=== PATIENT | male | born 1955 | race Caucasian/White ===

== ENCOUNTER 2024-02-13 23:51 | Inpatient (IN) | payer BC, SELFPAY ==
[2024-02-13] VITALS (7 sets, daily range): BP systolic 105–178; BP diastolic 69–116; BMI 25.9
[2024-02-13 21:03] LABS: % Basophils 0.4 % (0-2); % Eosinophils 5.3 % (0-6); % Immature Granulocytes 0.3 % (0-0.5); % Lymphocytes 24.9 % (20.5-51.1); % Monocytes 6.9 % (1.7-9.3); % Neutrophils 62.2 % (42.2-75.2); Absolute Eosinophils 0.4 10^3/uL (0-0.7); Absolute Lymphocytes 1.7 10^3/uL (1.2-3.4); Absolute Monocytes 0.5 10^3/uL (0.1-0.6); Absolute Neutrophils 4.3 10^3/uL (1.4-6.5); Hematocrit 44.3 % (39.0-52.0); Hemoglobin 16.1 g/dL (13.0-18.0); Mean Corp Hgb Conc. 36.3 g/dL (33.0-37.0); Mean Corpuscular Hgb 30.3 pg (27.0-31.0); Mean Corpuscular Volume 83.4 fL (80.0-94.0); Mean Platelet Volume 10.6 fL (7.4-10.4); Nucleated Red Blood Cells % 0 % (-); Platelet Count 188 10^3/uL (130-400); Red Blood Cell Count 5.31 10^6/uL (4.70-6.10); Red Cell Dist. Width 11.9 % (11.5-14.5); White Blood Cell Count 6.9 10^3/uL (4.8-10.8)
[2024-02-13] MEDS: NITROSTAT (SUBLINGUAL) 0.400000000000000022 MG SL ×2 (21:05→21:18)
[2024-02-13] MEDS: TYLENOL 1000 MG PO (21:05)
[2024-02-13] MEDS: LOW STRENGTH ASPIRIN 324 MG PO (21:05)
[2024-02-13 21:18] LABS: ALT (SGPT) 38 U/L (0-50); AST (SGOT) 30 U/L (17-59); Albumin 4.7 g/dl (3.5-5.0); Alkaline Phosphatase 62 U/L (38-126); Blood Urea Nitrogen 13 mg/dl (9-20); Calcium 9.6 mg/dl (8.4-10.2); Carbon Dioxide 27 mmol/L (22-30); Chloride 103 mmol/L (98-107); Estimated Creatinine Clearance 79 ml/min; Glucose 127 mg/dl (70-99); Potassium 3.9 mmol/L (3.5-5.1); Sodium 137 mmol/L (135-145); Total Bilirubin 1.2 mg/dl (0.2-1.3); Total Protein 7.2 g/dl (6.3-8.2); eGFR > 60.00
[2024-02-13 21:28] LABS: Troponin I 0.051 ng/ml
[2024-02-13] MEDS: NITRO-BID 1 INCH TOPICAL (21:37)
[2024-02-13 21:59] LABS: APTT 40.4 Sec (23.4-35.0)
[2024-02-13] MEDS: HEPARIN 4000 UNITS IV (22:04)
[2024-02-13] MEDS: HEPARIN 25000 UNITS/250 ML IV (22:06)
--- NOTE | 2024-02-13 22:11 | ED.GENMED ---
History of Present Illness
General
Chief Complaint: Chest Pain
Source: patient
Exam Limitations: none
Time Seen by Provider: 02/13/24 20:35
Travel History
Have you had any contact with someone who has COVID-19?: No
Do you have any symptoms of coronavirus? Fever > 100 degrees, chills, cough, shortness of breath, sore throat, loss of taste or smell, muscle aches, or headache?: No
History of Present Illness
History of Present Illness:
60-year-old male who presents after he developed chest pressure. The patient states that started yesterday and he has some chest pressure that resolved. States he was able to go to bed and felt okay. Thought maybe it was GI. Today he woke up did
not feel quite himself a little bit fatigued and then noticed he was short of breath with exertion. He went to a [employer] game and walked again was not feeling well. On the way home his chest pressure got worse and he was concerned. On my
evaluation the chest pressure is a little bit better but does persist. Denies feeling short of breath at rest. No fevers. No palpitations. His blood pressure is noted to be high but he states he has no history of hypertension
Past History
Past History
ED Past Medical History: None
ED Past Surgical History: None
Social History
Tobacco: Non-smoker
Alcohol: None
Drug: None
Living: with family
Phy Exam
Physical Exam
Physical Exam:
CONSTITUTIONAL Patient alert and oriented to person, place and time. Well-appearing. Vital signs reviewed. Hypertensive
HEAD atraumatic, normocephalic.
EYES eyelids normal to inspection, Pupils equally round and reactive to light, Extraocular muscles intact, Conjunctiva normal, Sclera normal.
NECK normal range of motion, Trachea midline, no jugular venous distention.
RESPIRATORY CHEST No respiratory distress noted, Chest expansion equal, Bilateral breath sounds clear.
CARDIOVASCULAR regular rate and rhythm, Heart sounds normal.
ABDOMEN abdomen nontender, Bowel sounds normal. No distention.
BACK normal inspection, no obvious deformities
UPPER EXTREMITY range of motion normal, Motor strength normal, no cyanosis, no edema.
LOWER EXTREMITY range of motion normal, Motor strength normal, no cyanosis, no edema.
NEURO Speech normal, No focal motor deficits, [place] coma scale 15, Memory normal, Cranial Nerves intact to screening exam.
SKIN skin warm, dry, and normal in color.
PSYCHIATRIC patient oriented to person place and time, Normal affect.
Scores
Heart Score for Chest Pain Patients
STEMI patient?: No
History: Highly Suspicious
ECG: Nonspecific Repolarization
Age: >/= 65 years
Risk Factors: 1 or 2 Risk Factors
Troponin: >1 - <3 x Normal Limit
Heart Score for Chest Pain Patients: 7
Heart Score Risk: 72.7 % MACE over next 6 weeks
Course
Orders/Labs/Results
Orders:
Orders
02/13/24 20:20
Electrocardiogram (*1) Urgent
Reason for Study: Chest Pain
EKG- Treatment ONCE
02/13/24 20:27
Electrocardiogram (*1) Urgent
Reason for Study: Chest Pain
EKG- Treatment ONCE
02/13/24 20:54
CMP [Comprehensive Metabolic Panel] Urgent
Complete Blood Count/With Diff Urgent
Troponin I Urgent
02/13/24 20:58
Acetaminophen [Tylenol] 1,000 mg PO NOW STA
Aspirin Chewable [Low Strength Aspirin] 324 mg PO NOW STA
Nitroglycerin Sublingual [Nitrostat (Sublingual)] 0.4 mg SL [id number] PRN
CR Chest Portable - 1 View Urgent
Comment:
Reason For Exam: cp, htn
Reason Study Needs to be Portable: Patient Unstable
02/13/24 21:24
EKG [Electrocardiogram (*1)] Urgent
Reason for Study: Chest Pain
EKG- Treatment ONCE
02/13/24 21:28
Heparin 4,000 units IV NOW STA
Nursing to Place Non Medication Order As Directed
Physician Order: PTT 6 hours after initial start of Heparin infusion
Above order entered?: Yes
02/13/24 21:30
Heparin 13368 Units/250 ml 25,000 units in 250 ml IV PER PROTOCOL
Weight to be used for heparin protocol in kilograms (kg):: 79.379
Protocol:: Cardiac Tx/Acute Coronary
PTT Goal Range to be used:: PTT 73 to 111 seconds
Order type:: Initial
INITIAL Infusion Dose (UNITS/KG/hr) & then follow protocol:: 12 units/kg/hr
Infusion Dose in UNITS/hr & then follow protocol (UNITS/hr):: 950
INFUSION RATE in mL/hr & then follow protocol (mL/hr):: 9.5
PTT less than or equal to 64 seconds:: Increase rate by 200 units/hr (+ 2 mL/hr)
PTT 64.1 to 72.9 seconds:: Increase rate by 100 units/hr (+ 1 mL/hr)
PTT 73 to 111 seconds:: Target Range. No change in rate.
PTT 111.1 to 130.9 seconds:: Decrease rate by 100 units/hr (- 1 mL/hr)
PTT 131 to 199.9 seconds:: HOLD for 1 hr. Then decrease rate by 200 units/hr (- 2 mL/hr)
PTT greater than or equal to 200 seconds:: HOLD for 2 hrs & Notify Provider. Then decrease by 200 units/hr (-
2 mL/hr)
Lab follow-up:: Each change, PTT q6h until 2 consecutive are therapeutic. Then PTT
daily.
02/13/24 21:34
Nitroglycerin Ointment [Nitro-Bid] 1 inch .ROUTE .STK-MED ONE
02/13/24 21:36
Nitroglycerin Ointment [Nitro-Bid] 1 inch TOPICAL NOW STA
02/13/24 21:40
PTT Urgent
Comment: Obtain baseline before beginning heparin infusion if not already collected
02/13/24 23:34
Admit/Transfer Patient As Directed
Co-Sign Provider:
Level of Care: Inpatient admission
Assign to:: Telemetry
Physician / Group: Raisa/Hospitalist
Diagnosis: UA/NSTEMI, HTN urgency
Reason for Telemetry: Chest Pain syndromes
Date to Stop Telemetry: 02/15/24
Time to Stop Telemetry: 11:00
Reason for Hospitalization: UA/NSTEMI, HTN urgency
Expected length of stay greater than two midnights?: Yes
ELOS- Estimated Length of Stay in days: 3
I certify the patient meets the requirements for IP care: Yes
02/13/24 23:35
Code Status As Directed
Resuscitation Status: Full Code
02/14/24 04:10
PTT Urgent
02/15/24 11:00
DC Protocol for Telemetry ONCE
Abnormal Lab Results
02/13/24 02/13/24
20:54 21:40
MPV 10.6 H fL
(7.4-10.4)
APTT 40.4 H Sec
(23.4-35.0)
Glucose 127 H mg/dl
(70-99)
Troponin I 0.051 H* ng/ml
02/13/24 20:54
02/13/24 20:54
Vital Signs
Initial and Last Documented VS:
Initial Vital Signs
Temp Pulse Resp BP Pulse Ox
98.2 F 80 22 178/110 98
02/13/24 20:24 02/13/24 20:24 02/13/24 20:24 02/13/24 20:24 02/13/24 20:24
Last Documented Vital Signs
Temp Pulse Resp BP Pulse Ox
98.2 F 65 12 105/69 96
02/13/24 20:24 02/13/24 23:45 02/13/24 23:45 02/13/24 23:00 02/13/24 23:45
MDM/Problems Addressed
Differential Diagnosis Includes:
Acute NM, unstable angina aortic dissection, pulmonary embolism, GI etiology
MDM/Problems Addressed:
Unstable angina, left bundle branch
*Radiology
Radiology exam reviewed: all reviewed NAD by ED Provider
*Pulse Oximetry
Patient hypoxic: no
*EKG
Interpreted by ED Provider?: Yes
Interpretation: abnormal
Rate: normal
Rhythm: sinus
QRS Pattern: left bundle branch block
Ischemia: non-specific ST changes
*Inner Tube Inserter Interpretation
Rate: normal
Interpretation: normal
Rhythm: sinus
*Critical Care Note
Total Time (30-74mins, 75-104mins- exclusive of procedures): 30 minutes
Data Reviewed
Source: patient
Prescriptions/Medications Considered But Not Given:
Considered IV nitro but sublingual nitro resolved the symptoms.
Patient Management
Discussion with other providers: Hospitalist and Implement Mechanic (Case discussed with Dr. Campbell)
Escalation/DeEscalation of care consider admission/obs:
68-year-old male who presents with chest pain that was resolved with sublingual nitroglycerin. Now on Nitropaste. Noted to be bumped. Suspect unstable angina. EKGs are unchanged and look to be a left bundle branch block pattern. He does not
have old EKGs for comparison. Aspirin given. Heparin. Admit.
Update Note
Update Note:
2350 remains pain-free
ED Attending Note
-
Portions of this chart may have been created with voice recognition software.� Occasional wrong word or��sound alike� substitutions may have occurred due to the inherent limitations of voice recognition software.
Discharge Plan
Departure
Patient Disposition: Admit
Date of Disposition: 02/13/24
Time of Disposition: 22:11
Admit to: IVU
Presentation/result/management discussed w/ accepting MD/DO: Hospitalist
Discharge Problem:
Unstable angina
Interventions
Interventions:
*Risk Screen - Suicide Last Done: 02/13/24 20:24
*General Assessment Last Done: 02/13/24 20:59
*Neglect/Abuse Screening Last Done: 02/13/24 20:24
ED- Fall Risk Assessment Last Done: 02/13/24 20:58
*ED COVID-19 Vaccine History Last Done: 02/13/24 20:58
ED- Cardiac Assessment Last Done: 02/13/24 21:00
--- NOTE | 2024-02-13 23:40 | HPS.HSE ---
Family Physician
-
Family Physician: Greg Rivas
Chief Complaint
-
CP
History of Present Illness
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
non-radiating chest discomfort that started this afternoon while watching his grandson's baseball game (walking around). He felt some chest discomfort Wednesday as well that he initially attributed to gas bubble in esophagus, which was relieved with
drinking Dr. Gamboa soda. He woke up today (Wednesday) not feeling himself, felt more lethargic, a/w chest pressure/discomfort and difficulty taking in a good deep breath without pain. He has not experienced these symptoms in the past. Chest symptoms
resolved in ED following NTG. EKG was abnormal -LBBB and ST elevation precordial leads not meeting criteria for STEMI- no EKG to compare. HTN in ED as well that improved with NTG.
Medical History
Past Medical History
Past Medical History: Reports Other (Holt's esophagus, left shoulder OA)
Past Surgical History: Reports None
Social History
Tobacco: Non-smoker
Alcohol: Occasional
Drug: None
Family History
Family History: Cancer (colon cancer) and Other (stroke)
Allergies / Home Medications
Allergies reflects when Allergies were last updated in [employer].
Home Medications with original date entered in [employer]
Allergy/Medication List:
Allergies
Allergy/AdvReac Type Severity Reaction Status Date / Time
No Known Allergies Allergy Verified 02/13/24 20:27
Home Medications
pantoprazole 20 mg tablet,delayed release 20 mg PO DAILY 02/13/24
Review of Systems
-
A 12 point ROS was completed and negative except as noted: Yes
Physical Exam
Vital Signs
Vital Signs
Temp Pulse Resp BP Pulse Ox
98.2 F 71 14 105/69 93
02/13/24 20:24 02/13/24 23:00 02/13/24 23:00 02/13/24 23:00 02/13/24 23:00
Physical Exam
General: Well Developed, Well Nourished, No Apparent Distress, Comfortable and Conversant
HEENT: NormoCephalic, Anicteric and Moist mucous membranes
Respiratory: Clear
Cardiac: S1/S2 and Regular Rhythm
GI: Soft, Non Tender and Non Distended
Musculoskeletal: No Clubbing, No Cyanosis and No Edema
Skin: Warm and Dry
Neuro: AO x 3, No Motor Deficits and Nonfocal/grossly intact
Psych: Calm
Laboratory Results
-
02/13/24 20:54
02/13/24 20:54
Laboratory Results
APTT 40.4 Sec (23.4-35.0) H 02/13/24 21:40
Total Bilirubin 1.2 mg/dl (0.2-1.3) 02/13/24 20:54
AST 30 U/L (17-59) 02/13/24 20:54
ALT 38 U/L (0-50) 02/13/24 20:54
Alkaline Phosphatase 62 U/L (38-126) 02/13/24 20:54
Troponin I 0.051 ng/ml H* 02/13/24 20:54
Data Reviewed
-
Diagnostic Radiology: Image Personally Visualized and interpreted (NAD - report pending)
Medical Tests (Nuc Med, Echo, EKG etc): Image Personally Visualized and interpreted (LBBB, ST changes precordial leads) and Report Reviewed by me
Impression/Plan
-
IMPRESSION:
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
non-radiating chest discomfort that started this afternoon while watching his grandson's baseball game (walking around). He felt some chest discomfort Wednesday as well that he initially attributed to gas bubble in esophagus, which was relieved with
drinking Dr. Gamboa soda. He woke up today (Wednesday) not feeling himself, felt more lethargic, a/w chest pressure/discomfort and difficulty taking in a good deep breath without pain. He has not experienced these symptoms in the past. Chest symptoms
resolved in ED following NTG. EKG was abnormal -LBBB and ST elevation precordial leads not meeting criteria for STEMI- no EKG to compare. HTN in ED as well that improved with NTG.
#Chest pain concerning for unstable angina and NSTEMI,
-EKG ST elevation not meeting criteria for STEMI/ LBBB without comparison EKG
-trop 0.051
-admit to tele, continue hep gtt, serial trop, Cards Consult appreciated -Dr. Campbell made aware in ED
-NPO for possible cath Wednesday, gentle IVF overnight while NPO
-echo
-cardiovascular labs in am
-start metoprolol low dose and monitor BP
-daily aspirin 81 mg
-prn NTG
-pulse oximetry
#HTN urgency improved following NTG
#Holt's esophagus
-cont PPI
DVT proph-on Hep gtt, protocol
Full Code
[2024-02-14] VITALS (14 sets, daily range): BP systolic 108–151; BP diastolic 61–103; BMI 26.5
[2024-02-14] MEDS: NSS 1000 IV ×2 (01:17→14:25)
[2024-02-14 01:44] LABS: Troponin I 0.204 ng/ml
--- NOTE | 2024-02-14 01:56 | PTCARENOTE ---
Patient arrived to unit via stretcher around 00:45 with dx of UA/NSTEMI/ HTN urgency. Patient AAOX3. Denies pain or SOB. Assessment benign. Heparin gtt infusing at 9.5 ml/ hr with next PTT @ 4 am. Trops every 3 hours x 3 with EKGs. NPO for possible
cardiac cath in am. Oriented to unit. Call harman within reach.
[2024-02-14 04:27] LABS: INR 1.15; PT 14.5 Sec (11.4-14.6)
[2024-02-14 04:29] LABS: APTT 131.5 Sec (23.4-35.0)
[2024-02-14 04:31] LABS: Blood Urea Nitrogen 13 mg/dl (9-20); Calcium 9.1 mg/dl (8.4-10.2); Carbon Dioxide 26 mmol/L (22-30); Chloride 106 mmol/L (98-107); Estimated Creatinine Clearance 88 ml/min; Glucose 110 mg/dl (70-99); HDL Cholesterol 48 mg/dl; LDL Cholesterol, Calculated 131 mg/dl; Potassium 3.9 mmol/L (3.5-5.1); Sodium 137 mmol/L (135-145); Total Cholesterol 197 mg/dl (50-199); Triglyceride 94 mg/dl (10-149); Very Low Density Lipoprotein 18 mg/dl (0-30); eGFR > 60.00
[2024-02-14 05:06] LABS: Troponin I 0.279 ng/ml
[2024-02-14] MEDS: LOPRESSOR 12.5 MG PO (08:19)
[2024-02-14] MEDS: PROTONIX 20 MG PO (08:19)
[2024-02-14] MEDS: LOW STRENGTH ASPIRIN 81 MG PO (08:19)
--- NOTE | 2024-02-14 08:44 | CON.CAR ---
Addendum entered and electronically signed by Vince Ahumada MD 02/14/24 11:31:
68-year-old man with chest discomfort, left bundle branch block, and troponin 0.279. Fairly classic symptoms of shortness of breath and chest discomfort over the last 2 days.
Allergies: None known
PMH: Holt's, osteoarthritis
PSH: None
SH: Non-smoker, occasional alcohol, no drugs
FH: Colon cancer
Home medications: Pantoprazole 20 mg daily
Current meds: IV heparin, pantoprazole, aspirin, metoprolol
ROS: Negative except as above
115/72, pulse 68, res rate 16
Head neck exam unremarkable, no distress, clear lungs, regular rate and rhythm, paradoxically split S2, abdomen benign extremities without clubbing cyanosis or edema distal pulses okay, neuro nonfocal
ECG: Sinus bradycardia, left bundle branch block anterior T wave inversions
Hemoglobin 16.1, BUN and creatinine 13 and 0.86, peak troponin 0.279, HDL 48, total cholesterol 197, LDL 131
Chest x-ray: NAD
Impression:
ACS
Left bundle branch block
Holt's esophagitis
Hypercholesterolemia
Plan:
Cardiac catheterization
GDMT
Original Note:
Consultation
Consultation Request
Date/Time Consultation Requested: 02/14/24 at 0051
Date/Time Consultation Performed: 02/14/24 at 0730
Requesting Provider: Dr. Issa
Performing Provider: Dr. SHARRON Ahumada
Reason for Consultation: Chest pain, WHEELER, elevated Troponin, HTN
Medical History
-
History of Present Illness:
Patient came to [facility] yesterday with chest pain and WHEELER and his Troponin was elevated so cardiology consulted. Patient says that he had an episode of chest pain on Wednesday described as discomfort that resolved with drinking a carbonated beverage and
belching which was not unusual for him. He went to bed Wednesday night and felt fine. He awoke Wednesday and felt tired. He had WHEELER which was new and described as SOB with walking more than 100 ft. He has never had a problem like that before. Patient
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 and going to his grandsons' soccer games, but at that games the WHEELER continued and he felt ill. He was driving home and had recurrence of chest pain described as a
recurrence of gas type pain from the day before and instead of driving home to [place] he drove to [facility]. Patient had a LBBB on ECG in the ER and initial Troponin was 0.051 and is now up to 0.279. Chest pain was relievd with Nitro SL x1 in the
ER. Patient says he was given an additional NTG SL and then Nitro-paste due to ongoing HTN. He says his chest pain has not recurred. He says that at age 40 he needed an eye surgery and ECG was read as abnormal with previous PR at that time which
prompted a cardiology evaluation at [facility] including stress test that were normal. Patient reports increased stress since his mother unexpectedly after a fall and hip fracture in August. He has been stressed dealing with her will and
arranging for care of his adult sister who has an intellectual disability.
PMH:
h/o Holt's esophagus
Past Medical History
Past Medical History: Other (in HPI)
Past Surgical History: Other (eye surgery at age 40)
Social History
Tobacco: Non-Smoker
Alcohol: Occasional (2-3 times a month)
Drug: None
Personal:
Living: Alone
Employment: Employed
Family History
Family History: Other (mother in August after a fall and hip fracture, father with ETOH use disorder, sister with intellectual disability, brother A&W)
Allergies / Home Medications
Allergy/AdvReac Type Severity Reaction Status Date / Time
No Known Allergies Allergy Verified 02/13/24 20:27
�Medication �Instructions �Recorded �Confirmed �Type
pantoprazole 20 mg tablet,delayed 20 mg PO DAILY 02/13/24 02/13/24 History
release
Review of Systems
-
History Source: Patient
All other systems: Negative unless noted
Physical Exam
Vital Signs
Temp Pulse Resp BP Pulse Ox
97.5 F 68 16 115/72 97
02/14/24 08:00 02/14/24 08:00 02/14/24 08:00 02/14/24 08:00 02/14/24 08:00
GEN: NAD. AAOx3
HEENT: EOMI, MMM
LUNGS: CTA B/L, no wheezes or rales
CV: Reg, S1/S2, no murmur
ABD: soft, BS+, NT, ND
EXT: No clubbing, cyanosis, lesions or edema B/L
NEURO: Gross non-focal
SKIN: Warm, dry and pink. No rash
Lab Results
02/13/24 20:54
02/14/24 04:09
Troponin I 0.279 ng/ml H* D 02/14/24 04:09
Impression / Plan
-
PCP: Dr. Greg Rivas
Cardiology: None
Impression:
Chest pain
Elevated Troponin
WHEELER
HTN urgency
h/o Holt's esophagus
Prediabetes with HgbA1c 5.8% on 02/14/24
Hyperlipidemia, LDL 131
Echo 02/14/24: Study pending
Plan:
-Patient came to [facility] yesterday with chest pain and WHEELER and his Troponin was elevated so cardiology consulted. Patient says that he had an episode of chest pain on Wednesday described as discomfort that resolved with drinking a carbonated beverage
and belching which was not unusual for him. He went to bed Wednesday night and felt fine. He awoke Wednesday and felt tired. He had WHEELER which was new and described as SOB with walking more than 100 ft. He has never had a problem like that before.
Patient tried to follow his usual Wednesday routine of driving his [place]ep along [address] and going to his grandsons' soccer games, but at that games the WHEELER continued and he felt ill. He was driving home and had recurrence of chest pain described as a
recurrence of gas type pain from the day before and instead of driving home to [place] he drove to [facility]. Patient had a LBBB on ECG in the ER and initial Troponin was 0.051 and is now up to 0.279. Chest pain was relievd with Nitro SL x1 in the
ER. Patient says he was given an additional NTG SL and then Nitro-paste due to ongoing HTN. He says his chest pain has not recurred. He says that at age 40 he needed an eye surgery and ECG was read as abnormal with previous PR at that time which
prompted a cardiology evaluation at [facility] including stress test that were normal. Patient reports increased stress since his mother unexpectedly after a fall and hip fracture in August. He has been stressed dealing with her will and
arranging for care of his adult sister who has an intellectual disability.
-Reviewed with patient that he had chest pain, WHEELER, LBBB of unknown chronicity, HTN and elevated Troponin on admission. Expressed concern for ACS. Patient reports that he walked an 18 hole golf course last week without problem. Explained that ACS is
just that, an acute change.
-ECG showed reviewed by me showed LBBB
-Made a plan to check an echo and pending results will discuss cardiac cath again.
-For now patient is pain free on Heparin gtt and with Nitro-paste
-Additional Troponin levels ordered
-CVE checked and LDL is 131. Pending results of echo and likely cath will recommend moderate to high intensity statin
-Hyperglycemia with HgbA1c of 5.8% noted.
-HTN is new this admission. BP has improved with addition of Nitro pastae 1 in applied 02/13/24 PM plus addition of Lopressor 12.5 mg BID.
[2024-02-14 09:30] LABS: Glycohemoglobin (HgbA1c) 5.8 % (4.0-5.6)
[2024-02-14 11:50] LABS: APTT 72.5 Sec (23.4-35.0)
[2024-02-14 12:04] LABS: Troponin I 0.204 ng/ml
[2024-02-14 13:15] LABS: ACT-LR - POC 306 Seconds (116-155)
[2024-02-14 13:43] LABS: ACT-LR - POC 308 Seconds (116-155)
--- NOTE | 2024-02-14 13:50 | W.PN.HOSP.TC ---
Today's Communication/Plan
-
see bold
Assessment / Plan
Assessment / Plan
Gen: NAD, AAOx3.
Eyes: EOMI, PERRLA, no scleral icterus.
Neck: supple.
CV: RRR, +S1/S2, no m/r/g.
Resp: CTAB, no rales, wheezes, or rhonchi.
Abd: +BS, soft, NT, ND
Skin: No rashes.
Neuro: CN 2-12 intact, non-focal.
Psych: Normal mood and affect.
Acute coronary syndrome/NSTEMI with left bundle branch block:
-Trop peaked 0.279
-was on heparin gtt
-cath today with 2 stents to mid-LAD
-cont ASA/statin/Brilinta/BB/ACEi
-discussed with cardiology
Essential HTN (with hypertensive urgency on admission):
-improved following NTG
-cont BB/ACEi
Holt's esophagus: cont PPI
FULL/Lovenox
Anticipated Discharge: Within 24 hours
Subjective/Interval History
-
Date of Service: February 14, 2024
Denies CP/SOB.
Objective Data
-
Labs:
Laboratory Results
02/14/24 02/14/24 02/14/24
04:09 11:24 17:45
PT 14.5
INR 1.15
APTT 131.5 H 72.5 H Pending
Sodium 137
Potassium 3.9
Chloride 106
Carbon Dioxide 26
BUN 13
Creatinine 0.8
Glucose 110 H
Calcium 9.1
Vital Signs:
Vital Signs
Temp Pulse Resp BP Pulse Ox
97.6 F 62 16 125/76 97
02/14/24 11:31 02/14/24 11:31 02/14/24 11:31 02/14/24 11:31 02/14/24 11:31
I&O
02/13/24 02/14/24 02/15/24
06:59 06:59 06:59
Intake Total 345.5 / 345.5
Balance 345.5 / 345.5
--- NOTE | 2024-02-14 13:51 | ITS.CL.CATH ---
Evp Chief Exploration Officer - Catheterization
Cardiac Catheterization
Procedure Report:
LEFT HEART CATH AND CORONARY INTERVENTION
Date of Procedure: February 14, 2024
Referring: Dr. Vnice Ahumada
PROCEDURES:
1. Left heart catheterization with coronary and single-plane left ventriculography
2. Successful stenting of the proximal to mid LAD with a 3.5 x 23 mm Xience stent that was implanted at nominal pressures and postdilated distally with a 3.5 mm noncompliant balloon and in the proximal to midportion of the stent with a 4.0 x 12 mm
noncompliant balloon to 16 atmospheres in the proximal to midportion of the stent and 3.5 mm noncompliant balloon distally
INDICATION: This is a 68-year-old gentleman who presented to [facility] with new onset substernal chest tightness ruling in for small non-ST segment elevation myocardial infarction with peak troponin of 0.279 ng/mL. He is now referred for
coronary angiography.
ACCESS: Right radial artery, 6 Angolan sheath
HEMODYNAMICS (mmHg):
AO (s/d, m) : 119/71, 91
LV (s/d) : 121/6
LVEDP : 14
CORONARY FINDINGS
Dominance: Right
LEFT MAIN: Normal
LEFT ANTERIOR DESCENDING: The LAD arises normally from the left main and runs in the anterior interventricular groove. The proximal LAD is a large-caliber vessel that tapers beyond a small first diagonal branch with an 80-90% stenosis between the
small first diagonal and large second diagonal branch. The LAD beyond the second diagonal branch has a 60% stenosis. The remainder of the LAD has minor irregularities but no focal obstructive stenosis.
CIRCUMFLEX: The circumflex is a large-caliber nondominant vessel. OM1 arises from the mid circumflex and has a focal 60% stenosis. OM 2 is large and widely patent as is OM 3
RIGHT CORONARY: The right coronary artery is a large-caliber dominant vessel with diffuse mild luminal irregularities over its course. The distal RCA has serial 30-40% narrowings.
VENTRICULOGRAPHY: Left ventriculography was performed in an LOPEZ projection. The digital single-plane left ventricular ejection fraction is visually estimated at 40-45%. There is anterolateral and apical hypokinesis.
ANGIOPLASTY PROCEDURE DETAIL: Upon review of the diagnostic catheterization films the decision was made to proceed with percutaneous revascularization of the high-grade stenosis in the mid LAD between the first and second diagonal branches and
beyond the second diagonal branch with a second stent. Intravenous heparin was administered and the ACT was monitored throughout the procedure. A 180 mg loading dose of ticagrelor was given at the beginning of the interventional procedure and the
patient had received a loading dose of aspirin and 81 mg earlier today.
The origin of the left main was cannulated with a 6 Angolan EBU 3.75 guiding catheter and a short BMW guidewire was advanced to the apical LAD. Balloon predilation of the more proximal stenosis was performed with a 2.0 x 15 mm trek balloon. The mid
LAD beyond the second diagonal branch was stented with a 3.0 x 18 mm Xience stent in the more proximal stenosis was stented with a 3.5 x 23 mm Xience stent. The distal marker of the stent was positioned proximal to the second diagonal branch and
the proximal marker was positioned before the first diagonal branch. The more distal stent was postdilated with a 3.5 mm noncompliant balloon to 8 jodi distally and 10-12 jodi in the proximal to midportion of the stent. The more proximal stent was
postdilated with a 3.5 mm noncompliant balloon to high pressures at the distal edge and overlapping to the midportion of the stent. The proximal portion of the stent was postdilated with a 4.0 mm noncompliant balloon to high pressures at the
proximal edge and into the midportion of the stent. The final angiographic result was excellent
RADIATION SUMMARY: Fluoro Time (min): 12.6, Dose (mGy): 1481, DAP (Gy.cm2) : 60
CONCLUSIONS
1. Acute coronary syndrome with high-grade stenosis in the mid LAD that was successfully stented with a 3.5 x 23 mm Xience stent that was postdilated with a 3.5 mm noncompliant balloon distally and with a 4.0 mm noncompliant balloon in the proximal
to midportion of the stent
2. Successful stenting of the mid LAD beyond the large second diagonal branch with a 3.0 x 18 mm Xience stent that was postdilated with a 3.5 mm noncompliant balloon
3. Mild LV dysfunction
RECOMMENDATIONS
1. Uninterrupted dual antiplatelet therapy for 12 months followed by aspirin daily
2. High intensity lipid-lowering
3. Metoprolol XL and lisinopril for LV dysfunction and management of hypertension
Copy to: Dr. Vince Ahumada
[2024-02-14] MEDS: TYLENOL 650 MG PO (14:30)
--- NOTE | 2024-02-14 14:38 | PTCARENOTE ---
Received the patient form the laborer mine in his bed. The patient is aaox3, vss, 96% on RA. NSR with a BBB and a prolong Qt is noted on the monitor. His right R-band is in place with a positive right radial pulse noted. He complained of a JAY, a 5/10 on
scale. Tylenol given as ordered. I instructed him of his activity restrictions and expected oob time. His call harman is within reach.
--- NOTE | 2024-02-14 16:45 | CM ---
spoke to pt in room, he is prev indep, lives alone in a 2 story home with no steps to enter. he denies any dc planning needs. plan is for dc to home when medically stable.
--- NOTE | 2024-02-14 17:05 | CM ---
Addendum entered by Minnie Benitez 02/15/24 10:37:
brilinta is in stock at [facility]
Original Note:
Pricing on Brilinta through patients prescription plan is $150 a month. The patient qualifies for the $ 5 copay card. I will place coupon in the red discharge folder
[2024-02-14] MEDS: LIPITOR 80 MG PO (18:18)
[2024-02-14] MEDS: TOPROL XL 25 MG PO (20:23)
[2024-02-14] MEDS: LOVENOX 40 MG SC (20:23)
[2024-02-14] MEDS: BRILINTA 90 MG PO (20:23)
--- NOTE | 2024-02-14 23:48 | PTCARENOTE ---
Pt AOx3 and pleasant. Tele- SR. HR 60s. Assessment noted as documented. R radial dsg. c/d/i. Pt ambulatory around room w/ steady gait. Offers no c/o at this time. Currently in bed; call ghazal w/in reach.
[2024-02-15 03:20] VITALS: BP 126/77
[2024-02-15 03:57] VITALS: BMI 26.4
[2024-02-15 04:30] LABS: Hematocrit 44.3 % (39.0-52.0); Hemoglobin 15.5 g/dL (13.0-18.0); Mean Corpuscular Hgb 30.3 pg (27.0-31.0); Mean Corpuscular Volume 86.5 fL (80.0-94.0); Mean Platelet Volume 11.2 fL (7.4-10.4); Platelet Count 161 10^3/uL (130-400); Red Blood Cell Count 5.12 10^6/uL (4.70-6.10); Red Cell Dist. Width 11.9 % (11.5-14.5); White Blood Cell Count 8.3 10^3/uL (4.8-10.8)
[2024-02-15 04:53] LABS: Blood Urea Nitrogen 14 mg/dl (9-20); Calcium 9.4 mg/dl (8.4-10.2); Carbon Dioxide 22 mmol/L (22-30); Chloride 108 mmol/L (98-107); Estimated Creatinine Clearance 79 ml/min; Glucose 95 mg/dl (70-99); HDL Cholesterol 46 mg/dl; LDL Cholesterol, Calculated 121 mg/dl; Sodium 136 mmol/L (135-145); Total Cholesterol 192 mg/dl (50-199); Triglyceride 126 mg/dl (10-149); Very Low Density Lipoprotein 25 mg/dl (0-30); eGFR > 60.00
[2024-02-15 07:09] VITALS: BP 122/77
[2024-02-15] MEDS: TOPROL XL 25 MG PO (08:58)
[2024-02-15] MEDS: ZESTRIL 5 MG PO (08:58)
[2024-02-15] MEDS: LOW STRENGTH ASPIRIN 81 MG PO (08:58)
[2024-02-15] MEDS: PROTONIX 20 MG PO (08:58)
[2024-02-15] MEDS: BRILINTA 90 MG PO (08:59)
[2024-02-15] MEDS: FLUSH (NSS) 2 FLUSH IV (08:59)
--- NOTE | 2024-02-15 09:18 | W.PN.CARDCBS ---
Today's Communication / Plan
-
Stable for discharge to home
Cardiology f/u arranged
Impression / Plan
-
PCP: Dr. Greg Rivas
Cardiology: None
Impression:
NSTEMI, peak Troponin 0.279
CAD s/p 3.5 mm Xience to mid LAD and 3.0 mm Xience to mid LAD beyond large Diag-2 02/14/24
ICM EF 48% by echo 02/14/24
WHEELER
HTN urgency
h/o Holt's esophagus
Prediabetes with HgbA1c 5.8% on 02/14/24
Hyperlipidemia, LDL 131
Echo 02/14/24: EF 48% by Mast's method, Apical, anteroseptum, inferoseptum, and apical anterior wall hypokinesis, grade 1 diastolic dysfunction, mild MR
Plan:
-Patient with peak Troponin 0.279. Echo with EF down to 48%. Patient is symptomatically improved following LAD PCI x2 on 02/14/24.
-Talked with patient and daughter in room 02/15/24 and reviewed DAPT with aspirin and Brilinta. Appreciate help of CM on checking cost and availability of Brilinta.
-Patient was not taking an BP meds prior to admission and had HTN urgency on admission. Patient started on Toprol Xl 25 mg BID. Tele reviewed by me with intermittent sinus bradycardia. Will decrease to Toprol XL 12.5 mg daily.
-Patient is also new to lisinopril 2.5 mg daily and will need a BMP in 1 week. Cre stable at 0.9 and potassium 4.0 on day of discharge.
-Patient is interested in cardiac rehab.
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 Advised no lifting greater than 10 lbs for the next week and then no lifting greater than 50 lbs thereafter.
-LDL 131 and he was agreeable to start atorvastatin 80 mg HS. Recheck lipids and LFTs in 3 months.
-LBBB seems to be new this admission.
-Hyperglycemia with HgbA1c of 5.8% noted.
-Patient feels ready for discharge to home and would like to drive himself home at the 24 hour post-sedation shannon. Cardiology follow up being arranged
HPI: Patient came to [facility] yesterday with chest pain and WHEELER and his Troponin was elevated so cardiology consulted. Patient says that he had an episode of chest pain on Wednesday described as discomfort that resolved with drinking a carbonated
beverage and belching which was not unusual for him. He went to bed Wednesday night and felt fine. He awoke Wednesday and felt tired. He had WHEELER which was new and described as SOB with walking more than 100 ft. He has never had a problem like that
before. Patient tried to follow his usual Wednesday routine of driving his Jeep along [address] and going to his grandsons' soccer games, but at that games the WHEELER continued and he felt ill. He was driving home and had recurrence of chest pain
described as a recurrence of gas type pain from the day before and instead of driving home to [place] he drove to [facility]. Patient had a LBBB on ECG in the ER and initial Troponin was 0.051 and is now up to 0.279. Chest pain was relievd with Nitro
SL x1 in the ER. Patient says he was given an additional NTG SL and then Nitro-paste due to ongoing HTN. He says his chest pain has not recurred. He says that at age 40 he needed an eye surgery and ECG was read as abnormal with previous [facility] at that
time which prompted a cardiology evaluation at [facility] including stress test that were normal. Patient reports increased stress since his mother unexpectedly after a fall and hip fracture in August. He has been stressed dealing with her
will and arranging for care of his adult sister who has an intellectual disability.
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
Subjective
Date of Service: February 15, 2024
No chest pain
Objective
Labs:
02/15/24 03:29
02/15/24 03:29
Labs
Hgb 15.5 g/dL (13.0-18.0) 02/15/24 03:29
Hct 44.3 % (39.0-52.0) 02/15/24 03:29
Plt Count 161 10^3/uL (130-400) 02/15/24 03:29
PT 14.5 Sec (11.4-14.6) 02/14/24 04:09
INR 1.15 02/14/24 04:09
APTT Cancelled 02/14/24 17:45
Sodium 136 mmol/L (135-145) 02/15/24 03:29
Potassium 4.0 mmol/L (3.5-5.1) 02/15/24 03:29
BUN 14 mg/dl (9-20) 02/15/24 03:29
Creatinine 0.9 mg/dL (0.7-1.3) 02/15/24 03:29
Glucose 95 mg/dl (70-99) 02/15/24 03:29
Troponins
02/13/24 02/14/24 02/14/24
20:54 01:02 04:09
Troponin I 0.051 H* 0.204 H* D 0.279 H* D
02/14/24
11:24
Troponin I 0.204 H* D
Vital Signs and I&O:
Vital Signs
Temp Pulse Resp BP Pulse Ox
98 F 73 16 122/77 96
02/15/24 07:08 02/15/24 07:09 02/15/24 07:08 02/15/24 07:09 02/15/24 07:08
Vital Signs
Temp Pulse Resp BP Pulse Ox
98 F 73 16 122/77 96
02/15/24 07:08 02/15/24 07:09 02/15/24 07:08 02/15/24 07:09 02/15/24 07:08
Intake & Output
02/13/24 02/14/24 02/15/24 02/16/24
06:59 06:59 06:59 06:59
Intake Total 1195.5 / 1195.5
Balance 1195.5 / 1195.5
Physical Exam
Physical Exam
GEN: AAOx3
HEENT: EOMI
LUNGS: No audible wheeze
CV: SR on tele
ABD: ND
EXT: Right radial access site without hematoma or ecchymosis. No edema B/L
NEURO: Gross non-focal
SKIN: No rash
--- NOTE | 2024-02-15 11:07 | W.PN.HOSP.TC ---
Today's Communication/Plan
-
d/c
Assessment / Plan
Assessment / Plan
Gen: NAD, AAOx3.
Eyes: EOMI, PERRLA, no scleral icterus.
Neck: supple.
CV: remains RRR, +S1/S2, no m/r/g.
Resp: remains CTAB, no rales, wheezes, or rhonchi.
Abd: +BS, soft, NT, ND
Skin: No rashes.
Neuro: remains CN 2-12 intact, non-focal.
Psych: Normal mood and affect.
Acute coronary syndrome/NSTEMI with left bundle branch block:
-Trop peaked 0.279
-was on heparin gtt
-cath 02/14/24 with 2 stents to mid-LAD
-cont ASA/statin/Brilinta/BB/ACEi
-discussed with cardiology
Essential HTN (with hypertensive urgency on admission):
-improved following NTG
-cont BB/ACEi
Holt's esophagus: cont PPI
FULL/Lovenox
Total time spent on d/c = 31 min. This included today's physical exam, progress note, review of laboratory and diagnostic data, preparation of discharge documents and prescriptions, and discussions about the pt's hospital course and discharge plan
with the patient and other manager medical device involved in the patient's care.
Anticipated Discharge: Today
Subjective/Interval History
-
Date of Service: February 15, 2024
Denies chest pain or shortness of breath.
Objective Data
-
Labs:
Laboratory Results
02/15/24
03:29
WBC 8.3
Hgb 15.5
Hct 44.3
Plt Count 161
Sodium 136
Potassium 4.0
Chloride 108 H
Carbon Dioxide 22
BUN 14
Creatinine 0.9
Glucose 95
Calcium 9.4
Vital Signs:
Vital Signs
Temp Pulse Resp BP Pulse Ox
98 F 73 16 122/77 96
02/15/24 07:08 02/15/24 07:09 02/15/24 07:08 02/15/24 07:09 02/15/24 07:08
I&O
02/14/24 02/15/24 02/16/24
06:59 06:59 06:59
Intake Total 1195.5 / 1195.5
Balance 1195.5 / 1195.5
[2024-02-15 11:49] VITALS: BP 124/76
--- NOTE | 2024-02-15 13:52 | W.DCSUMMARY ---
Discharge Summary
Discharge Data
Date of Admission: 02/13/24
Date of Discharge: 02/15/24
-
Pending Results: No
Hospital Course
Primary diagnoses:
Acute coronary syndrome/non-ST elevation myocardial infarction with left bundle branch block
Secondary diagnoses:
Essential hypertension
Holt's esophagus
Consultants:
Cardiology
Imaging:
Echo: Normal left ventricular wall thickness. Normal left ventricular chamber size.
Mildly reduced left ventricular systolic function. Left ventricular ejection
fraction is 49% by volumetric assessment. 48% by Mast's method. Abnormal
septal motion. Apical, anteroseptum, inferoseptum, and apical anterior wall
hypokinesis. Grade 1 diastolic dysfunction.
Normal right ventricular size and function.
Trileaflet aortic valve. Aortic valve opens normally. Trace aortic
regurgitation.
Mitral valve opens normally. Mild mitral regurgitation.
Tricuspid valve opens normally. Trace tricuspid regurgitation. Right heart
pressures could not be determined.
Dilated aortic root is 4.1 cm. Ascending aorta is 3.7 cm.
CXR: Hypoaerated lungs without consolidation.
Hospital course: 68-year-old male who presented with chief complaint of chest pain as outlined in H&P done on admission. Patient's troponin peaked at 0.279 (acute coronary syndrome/NSTEMI). He was placed on a heparin drip on admission. He had a
cardiac cath on 02/14/24 with 2 stents placed in the mid-LAD. Patient was placed on aspirin, statin, Brilinta, beta-micheal, BORIS inhibitor.
Discharge Plan
-
Patient Disposition: Home (Routine Discharge)
Discharge Diagnosis/Procedures: Acute non-ST elevation myocardial infarction, angioplasty and stent to Left Anterior Descending artery
Condition: Good
Diet: Low Cholesterol
Activity: Other activity
Driving Restrictions: No driving for 24 hours
Bathing Restrictions: OK to Shower
Blood Work: Non-fasting blood work in 1 week to check kidney and liver function, prescription from PCP
Other Services: Cardiac Rehab
Stand Alone Forms: DC Instructions- Cath/EP Lab
Referrals:
[facility]. Cardiac Rehab [Outside] - 02/28/24 7:30 am
(Cardiac Rehab Orientation appointment is on Wednesday02/28/24 at 0730.
The Cardiac Rehab gym is located on the first floor of the [facility].)
Greg Rivas MD [Family Provider] - in less than 1 week
Kristine Jordan PA-C [Specified Professional Personl] - 03/09/24 3:00 pm (Cardiology followup appointment)
Prescriptions:
New
Brilinta 90 mg Tablet
90 mg PO BID Qty: 60 11RF
atorvastatin 80 mg Tablet
80 mg PO QPM Qty: 30 11RF
aspirin [Children's Aspirin] 81 mg Tablet,Chewable
81 mg PO DAILY Qty: 30 0RF
metoprolol succinate [Toprol XL] 25 mg tablet extended release 24 hr
12.5 mg PO DAILY Qty: 30 11RF
lisinopril 2.5 mg tablet
2.5 mg PO DAILY Qty: 30 11RF
Continued
pantoprazole 20 mg Tablet,Delayed Release (Dr/Ec)
20 mg PO DAILY
Discharge Orders:
Discharge Patient (As Directed); Ordered 02/15/24
Ordered By: Jamey Issa
Care Plan Goals
Care Plan Goals:
Problem: Readiness for enhanced knowledge related to diagnosis and treatment plan
Goal: Understand your diagnosis and treatment plan needs, including medications if applicable.
Instructions: Know your diagnosis, underlying causes and treatment plan options, including medications if applicable. Consult with your health care team to learn about your diagnosis and treatment plan, including medications if applicable.
Discharge Date and Time
Print Language: BENGALI
[2024-02-15 14:54] VITALS: BP 140/81
--- NOTE | 2024-02-15 15:50 | PTCARENOTE ---
The patient has been stable all shift. VSS, NSR on the monitor. He has had no complaints of pain or discomfort.
== END 2024-02-15 16:17 | disposition home or self-care (01) | DRG 322 ==
LOC: IVU 23:51
PROVIDERS: Emergency Medicine; Internal Medicine Interventional Cardiology; Nurse Practitioner; Physician Assistant Medical; ADMITTING PHYSICIAN Internal Medicine; ATTENDING PHYSICIAN Internal Medicine; EMERGENCY PHYSICIAN Emergency Medicine; FAMILY PHYSICIAN Family Medicine; OTHER PHYSICIAN Internal Medicine Cardiovascular Disease
PROC: 027035Z Dilation of Coronary Artery, One Artery with Two Drug-eluting Intraluminal Devices, Percutaneous Approach (ICD-10-PCS; 2024-02-14)
PROC: B2151ZZ Fluoroscopy of Left Heart using Low Osmolar Contrast (ICD-10-PCS; 2024-02-14)
PROC: B2111ZZ Fluoroscopy of Multiple Coronary Arteries using Low Osmolar Contrast (ICD-10-PCS; 2024-02-14)
PROC: 4A023N7 Measurement of Cardiac Sampling and Pressure, Left Heart, Percutaneous Approach (ICD-10-PCS; 2024-02-14)
DX: I21.4 Non-ST elevation (NSTEMI) myocardial infarction (principal); I10 Essential (primary) hypertension; I16.0 Hypertensive urgency; I44.7 Left bundle-branch block, unspecified; I24.9 Acute ischemic heart disease, unspecified; K22.70 Barrett's esophagus without dysplasia; I25.110 Atherosclerotic heart disease of native coronary artery with unstable angina pectoris; M19.012 Primary osteoarthritis, left shoulder; R73.03 Prediabetes; E78.00 Pure hypercholesterolemia, unspecified; R73.9 Hyperglycemia, unspecified; Z63.4 Disappearance and death of family member; Z63.6 Dependent relative needing care at home; Z63.79 Other stressful life events affecting family and household; Z82.3 Family history of stroke; Z80.0 Family history of malignant neoplasm of digestive organs; Z79.82 Long term (current) use of aspirin; I25.2 Old myocardial infarction; Z81.0 Family history of intellectual disabilities
CPT/HCPCS: 71045; 80048; 80053; 80061; 83036; 84484; 85025; 85027; 85610; 85730; 93005; 93306; 93458; 96365; 96366; 99291; C1725; C1769; C1874; C1894; C9600; C9601; Q9967

== ENCOUNTER 2024-03-17 06:34 | Outpatient (RCR) | payer BC, SELFPAY | END 2024-03-17 23:59 | disposition home or self-care (01) | LOC: CRHB 06:34 | PROVIDERS: ATTENDING PHYSICIAN Internal Medicine Cardiovascular Disease | DX: I25.10 Atherosclerotic heart disease of native coronary artery without angina pectoris (principal); Z95.5 Presence of coronary angioplasty implant and graft | CPT/HCPCS: G0422 ==

== ENCOUNTER → 2024-04-06 07:15 | Outpatient (REF) | payer BC, SELFPAY | LOC: HWRCS 07:15 | PROVIDERS: ATTENDING PHYSICIAN Physician Assistant; FAMILY PHYSICIAN Family Medicine | DX: I25.5 Ischemic cardiomyopathy (principal) | CPT/HCPCS: 93306 ==

== ENCOUNTER 2024-04-14 06:41 | Outpatient (RCR) | payer BC, SELFPAY | END 2024-04-14 23:59 | disposition home or self-care (01) | LOC: CRHB 06:41 | PROVIDERS: ATTENDING PHYSICIAN Internal Medicine Cardiovascular Disease | DX: I25.10 Atherosclerotic heart disease of native coronary artery without angina pectoris (principal); Z95.5 Presence of coronary angioplasty implant and graft; I25.2 Old myocardial infarction | CPT/HCPCS: 93798; G0422 ==

== ENCOUNTER 2024-04-21 07:57 | Outpatient (RCR) | payer BC, SELFPAY | END 2024-04-21 23:59 | disposition home or self-care (01) | LOC: CRHB 07:57 | PROVIDERS: ATTENDING PHYSICIAN Internal Medicine Cardiovascular Disease | DX: I25.10 Atherosclerotic heart disease of native coronary artery without angina pectoris (principal); Z95.5 Presence of coronary angioplasty implant and graft; I25.2 Old myocardial infarction | CPT/HCPCS: G0422; G0423 ==

== ENCOUNTER → 2025-02-15 11:43 | Outpatient (REF) | payer BC, SELFPAY | LOC: HWRCS 11:43 | PROVIDERS: ATTENDING PHYSICIAN Internal Medicine Interventional Cardiology; FAMILY PHYSICIAN Family Medicine | DX: I25.10 Atherosclerotic heart disease of native coronary artery without angina pectoris (principal); I25.5 Ischemic cardiomyopathy; R06.09 Other forms of dyspnea | CPT/HCPCS: 78452; 93017; A9500; J2785 ==